=== PATIENT | male | born 1955 | race Caucasian/White ===

== ENCOUNTER → 2017-07-18 15:51 | Outpatient (CLI) | payer OTHER, SELFPAY | PROVIDERS: Visit Provider Otolaryngology Otolaryngology/Facial Plastic Surgery | DX: J32.9 Chronic sinusitis, unspecified (principal) | CPT/HCPCS: 87070; 87077; 87186; 87205 ==

== ENCOUNTER → 2017-08-25 10:26 | Outpatient (CLI) | payer OTHER, SELFPAY | PROVIDERS: Family Provider Family Medicine; PCP Family Medicine; Visit Provider Otolaryngology Otolaryngology/Facial Plastic Surgery | DX: J32.9 Chronic sinusitis, unspecified (principal) | CPT/HCPCS: 87070; 87077; 87186; 87205 ==

== ENCOUNTER → 2018-01-28 10:15 | Outpatient (CLI) | payer OTHER, SELFPAY | PROVIDERS: Family Provider Family Medicine; PCP Family Medicine; Referring Provider Otolaryngology Otolaryngology/Facial Plastic Surgery; Visit Provider Otolaryngology Otolaryngology/Facial Plastic Surgery | DX: J32.9 Chronic sinusitis, unspecified (principal) | CPT/HCPCS: 87070; 87077; 87186; 87205 ==

== ENCOUNTER → 2018-02-19 15:58 | Outpatient (CLI) | payer OTHER, SELFPAY | PROVIDERS: Family Provider Family Medicine; PCP Family Medicine; Referring Provider Otolaryngology Otolaryngology/Facial Plastic Surgery; Visit Provider Otolaryngology Otolaryngology/Facial Plastic Surgery | DX: J32.9 Chronic sinusitis, unspecified (principal) | CPT/HCPCS: 87070; 87077; 87186; 87205 ==

== ENCOUNTER 2018-05-13 17:36 | Emergency (ER) | payer OTHER, SELFPAY ==
[2018-05-13 17:38] VITALS: BP 140/89; PULSE 105; RESP 17; TEMP 37.1; O2SAT 95; BMI 28.4
--- NOTE | 2018-05-13 18:31 | CT_ITS ---
STUDY: CT FACIAL BONES WITHOUT CONTRAST REASON FOR EXAM: Male, 62 years old. Hit in the face with a large piece of wire at work. No loss of consciousness. RADIATION DOSAGE (If Supplied By Facility): CTDIvol = ( 29.38 ) mGy, DLP = ( 584.19 ) mGycm TECHNIQUE: The patient was scanned in a multi detector CT scanner. Sagittal and coronal images were reconstructed. Individualized dose optimization techniques were used for this CT. COMPARISON: CT of the head, May 13, 2018. FINDINGS: Normal soft tissue structures. Normal orbital jason and orbital contents. Normal nasal bones and anterior nasal spine. Normal facial bones. There is no demonstrated fracture. Large amount of mucoperiosteal reaction with near complete occlusion of the left frontal sinus. There is marked ethmoid sinusitis with minimal visualized aeration. There is near complete occlusion of both maxillary sinuses. There is erosion of the medial jason of both maxillary sinuses with soft tissue density extending outward into the anterior nasal cavities. This may be secondary to prior surgery in light of the absence of the right middle turbinate. Mucoperiosteal reaction extends into the sphenoid sinus. CT/Sinus/Facial Bone IMPRESSION: 1. Normal unenhanced CT of the facial bones. 2. No evidence of soft tissue injury. 3. Marked chronic sinusitis with question of prior sinus surgery. Electronically Signed: Jarred Kent DO at 19:14 EST Tel [phone], Service support ,
--- NOTE | 2018-05-13 18:31 | CT_ITS ---
STUDY: CT BRAIN WITHOUT CONTRAST REASON FOR EXAM: Male, 62 years old. Trauma RADIATION DOSAGE (If Supplied By Facility): CTDIvol = ( 44.99 ) mGy, DLP = ( 846.73 ) mGycm TECHNIQUE: Transaxial CT imaging of the brain was performed without administration of intravenous contrast material. Individualized dose optimization techniques were used for this CT. COMPARISON: None. FINDINGS: There is no acute bleed or infarct. There are normal white matter tracts. The ventricles are normal in configuration. There is no hydrocephalus. The mastoid air cells are well aerated. There is no skull fracture. CT/Brain/Head without Contrast IMPRESSION: No acute intracranial abnormality. Electronically Signed: Lyle Reyes, at 19:11 EST Tel , Service support ,
--- NOTE | 2018-05-13 18:32 | ED.VISSUMM ---
- ER Visit Summary Date of Service: 05/13/18 Chief Complaint: Head injury History of Present Illness: The patient is a 62 M presenting after head injury. This occurred at work. He states that he was hit in the head by a metal wire. He had no loss of consciousness or vomiting. He states he felt dizzy with headache afterwards. No vision changes. He also has pain in his right small finger. Denies other injury. Physical Examination: Vitals are stable. Patient is afebrile. Alert no acute distress. HEENT exam hematoma right temporal scalp, mild tenderness along the right orbit. No pain with extraocular movements. Pupils equal round reactive to light. Neck is nontender Lungs are clear and equal bilaterally. Heart is regular rate and rhythm. Abdomen is soft nontender nondistended. Extremities distal right small finger mild tenderness Skin is warm and dry. No focal neurologic deficit. Remainder of exam is unremarkable. Emergency Department Course and Treatment: Right hand x-ray shows no acute process. CT head and facial bones show no acute process. Patient has no pain of his eye but complains of watering in his eye. Visual acuity 20/25 OD, 20/20 OS. No fluoroscein available. Discussed with Dr. Umaña and he can see him in the office tomorrow if he has continued symptoms. On reevaluation, patient is feeling improved. He is advised to follow-up with corporate care. Advised return to ED if worsening complaints. Disposition: Discharge home Impression: Closed head injury This note was generated with [employer] dictation software. It may contain incorrect words, spelling, and punctuation that were not noted in review of the chart prior to signing ED Disposition - Plan for ED Patient: Chief Complaint: Head Injury Referrals: Kash Barreto MD [Primary Care Provider] -
--- NOTE | 2018-05-13 18:45 | RAD_ITS ---
STUDY: X-RAY - RIGHT HAND REASON FOR EXAM: Male, 62 years old. Injured fifth digit at work. TECHNIQUE: 3 view(s) of the hand. COMPARISON: None. FINDINGS: Normal radiocarpal articulation. Normal distal radioulnar joint. Normal visualized carpal bones. Normal carpal articulations There is degenerative arthrosis of the carpometacarpal (CMC) articulation of the thumb. Normal second through fifth carpometacarpal joints. Normal metacarpi. There is degenerative arthrosis of the first metacarpophalangeal (MCP) joint. There is degenerative arthrosis of the interphalangeal joint of the thumb with articular joint space narrowing. Normal proximal and distal phalanges of the thumb. There is narrowing of the metacarpophalangeal joints of the second and third fifth fingers. The fourth and fifth metacarpophalangeal joints appear normal. There is minimal arthrosis involving the first and second proximal interphalangeal joints. Normal phalanges of the second through fifth fingers. There is mild soft tissue prominence over the medial hand. RAD/Hand Min 3 Views IMPRESSION: 1. No acute abnormality of the fifth digit. There is medial soft tissue swelling. 2. Arthritic changes of the right hand. Electronically Signed: Jarred Kent DO at 19:08 EST Tel [phone], Service support ,
[2018-05-13 20:07] VITALS: BP 140/80; PULSE 105; RESP 17; O2SAT 95
--- NOTE | 2018-05-13 20:13 | ED.DEP ---
ED Disposition - Plan for ED Patient: Chief Complaint: Head Injury Instructions: ED Head Injury Closed Referrals: Kash Barreto MD [Primary Care Provider[facility] - Praveen Umaña MD [STAFF PHYSICIAN] -
== END 2018-05-13 20:26 | disposition home or self-care (01) ==
LOC: ED 19:05
PROVIDERS: Emergency Provider Emergency Medicine; Family Provider Family Medicine; PCP Family Medicine
DX: S09.90XA Unspecified injury of head, initial encounter (principal); W22.8XXA Striking against or struck by other objects, initial encounter; Y93.9 Activity, unspecified; Y92.89 Other specified places as the place of occurrence of the external cause; Y99.0 Civilian activity done for income or pay; J45.909 Unspecified asthma, uncomplicated
CPT/HCPCS: 70450; 70486; 73130; 99283

== ENCOUNTER → 2019-03-21 15:53 | Outpatient (CLI) | payer MEDICARE, OTHER, SELFPAY | PROVIDERS: Family Provider Family Medicine; PCP Family Medicine; Referring Provider Otolaryngology Otolaryngology/Facial Plastic Surgery; Visit Provider Otolaryngology Otolaryngology/Facial Plastic Surgery | DX: J32.9 Chronic sinusitis, unspecified (principal) | CPT/HCPCS: 87070; 87186; 87205 ==

== ENCOUNTER → 2019-05-05 17:40 | Outpatient (CLI) | payer MEDICARE, OTHER, SELFPAY ==
--- NOTE | 2019-05-05 17:58 | CT_ITS ---
STUDY: CT MAXILLOFACIAL SINUSES REASON FOR EXAM: Male, 63 years old. Sinusitis, multiple sinus surgeries. Hx hypertension. Inform Direct navigation protocol. RADIATION DOSAGE (If Supplied By Facility): CTDIvol = ( 33.06 ) mGy, DLP = ( 866.91 ) mGycm TECHNIQUE: The patient was scanned in a multi detector CT scanner. High resolution axial imaging was performed without the administration of intravenous contrast material. Sagittal and coronal images were reconstructed. Individualized dose optimization techniques were used for this CT. COMPARISON: 13 May 2018 FINDINGS: There is extensive opacification of paranasal sinuses with polypoid-like heterogeneous mucosal appearance. Some of the contents are focally hyperdense. There is predominant opacification of the left frontal sinus. Midline septum the left and frontal sinuses is incomplete, possibly resected. There is partial opacification of the right frontal sinus. Bilateral nasal frontal recesses are fully occluded. There is extensive opacification of the ethmoid sinus which has been previously decompressed. There is partial right upper, complete left upper and bilateral complete middle turbinectomies. There are bilateral uncinectomies. Right maxillary antrostomies patent. Left maxillary antrostomy is occluded. There is multifocal dehiscence cribriform plate. There are dehiscences of the lamina papyracea. There is multifocal polypoid-like projections off the maxillary sinus with mild partial opacification. Right sphenoid sinus is predominantly opacified with occluded right sphenoethmoidal recess. Left sphenoethmoid recess is occluded. Left sphenoid sinus is dominant and mostly well aerated with a small amount of secretions. The sphenoid midline septum terminates along the right lateral wall of the sinus. Bilateral carotid canals have complete osseous coverings and are located along the superolateral lateral aspect of the sphenoid sinus. There is no extra sinus extension of disease. There are chronic paranasal sinus wall inflammatory changes. Orbits and contents are normal. Nasopharynx is clear. Nasal cavity is clear and nasal septum has minor rightward cartilaginous deviation. Mastoid air cells, middle ears and external auditory canals are well aerated. Base of skull is intact. TMJs are located. Oropharyngeal airway is patent. Compared to one year prior that extensive paranasal sinus mucosal disease is mildly/moderately less. CT/Sinus/Facial Bone IMPRESSION: 1. Moderately extensive polypoid paranasal sinus mucosal disease, possibly fungal. 2. Extensive prior paranasal sinus functional decompression. Electronically Signed: Trey Barrett, at 17:00 EST Tel , Service support ,
== END ==
PROVIDERS: Family Provider Family Medicine; PCP Family Medicine; Referring Provider Otolaryngology; Visit Provider Otolaryngology
DX: J32.9 Chronic sinusitis, unspecified (principal)
CPT/HCPCS: 70486

== ENCOUNTER 2019-06-10 07:27 | Day surgery (SDC) | payer MEDICARE, OTHER, SELFPAY ==
--- NOTE | 2019-05-16 16:37 | EKG12_ITS ---
Test Reason : PREOP Blood Pressure : / mmHG Vent. Rate : 060 BPM Atrial Rate : 060 BPM P-R Int : 160 ms QRS Dur : 094 ms QT Int : 432 ms P-R-T Axes : 031 016 043 degrees QTc Int : 432 ms Normal sinus rhythm Normal ECG Confirmed by CODY SHELTON, DAKOTAH ([id number]), editorial specialist FELI MCCOY ([id number]) on 05/20/2019 8:58:12 AM Referred By: Arslan Griggs Confirmed By:DAKOTAH ROSS MD
[2019-05-16 17:56] LABS: Anion Gap 4 (5-15); BUN 19 mg/dL (7-18); BUN/Creat Ratio 20.9 RATIO (10-20); Calcium,Total 9.7 mg/dL (8.5-10.1); Chloride 102 mmol/L (98-107); Creatinine, Serum 0.91 mg/dL (0.70-1.30); EST Glomerular Filtration Rate 89 mL/min (>60); Est Glom Filt Rate - Afr Amer 107 mL/min (>60); Glucose 211 mg/dL (74-106); Potassium 4.1 mmol/L (3.5-5.1); Sodium Level 136 mmol/L (136-145)
[2019-06-03 14:35] LABS: Hemoglobin A1c 7.3 % (4.2-6.3)
[2019-06-10 07:56] VITALS: BP 131/80; PULSE 65; RESP 16; TEMP 36.6; O2SAT 98; BMI 27.3
[2019-06-10 08:06] LABS: Bedside Glucose 147 mg/dL (70-110)
[2019-06-10] MEDS: Lactated Ringers 1,000 ML 100 ML IV (08:08)
[2019-06-10] MEDS: Oxymetazoline 0.05% 1 SPRAY SPRAY.BTL 15 SPRAY (08:20)
--- NOTE | 2019-06-10 09:05 | ETH_PTH ---
PATIENT: MAGNOLIA KAUR [place] [facility] [id number] AGE/SX: 63/M ROOM: RE06/10/[address]: Dr. Jluis Griggs MD : [id number] BED: DIS: 06/10/2019 SPEC #: [id number] RECD: 06/10/19 13:59 STATUS: GERRI RE #: [id number] DAVON: 06/10/19 09:[address]: Jluis Griggs DEPT: SURGICAL PATHOLOGY RECD BY: Clary Horner ENTERED: 06/10/19 14:33 SP TYPE: ETH TISS OTHR DR: MD Dr. Kash Hall MD Tissues: A - Ethmoid sinus, NOS B - Ethmoid sinus, NOS Procedures: Decalcification bone/plaque Surgery Specimen Level IV HEADER OPERATION: Functional endoscopic sinus surgery, navigation PRE-OP DIAGNOSIS: Acute sinusitis, nasal congestion TISSUE SUBMITTED: A. Right ethmoid and maxillary sinus contents, B. Left ethmoid and maxillary sinus contents MICROSCOPIC DIAGNOSIS A. Right ethmoid and maxillary sinus contents, biopsies: Consistent with chronic sinusitis. Benign epithelial inclusion cyst. B. Left ethmoid and maxillary sinus contents, biopsies: Consistent with chronic sinusitis. AM:ramy 06/13/19 MICROSCOPIC DESCRIPTION Slides are reviewed. GROSS DESCRIPTION A - Received in fixative is one container labeled with the patient's name and designated right ethmoid and maxillary sinus contents. The specimen consists of multiple fragments of hemorrhagic soft tissue mixed with possible fragments of bone that in aggregate measure 3 x 2.5 x 0.3 cm. The entire specimen is submitted in one cassette after decalcification. B - Received in fixative is one container labeled with the patient's name and designated left ethmoid and maxillary sinus contents. The specimen consists of multiple fragments of hemorrhagic soft tissue mixed with possible fragments of bone that in aggregate measure 7.5 x 3 x 0.3 cm. [employer] In[employer] tissue is submitted in two cassettes after decalcification. / SJ:ramy 06/10/19 TC:3 CPT: 46576 x2, 26549 x2
[2019-06-10 10:12] VITALS: BP 131/80; BP 153/89; PULSE 84; RESP 16; TEMP 36.1; O2SAT 97
[2019-06-10 10:15] VITALS: BP 131/80; BP 151/89; PULSE 85; RESP 16; O2SAT 96
[2019-06-10 10:30] VITALS: BP 131/80; BP 138/82; PULSE 76; RESP 16; O2SAT 93
--- NOTE | 2019-06-10 10:40 | PCM.DC ---
You will use the following diet at home:: No restrictions Your food should be the consistency of: Regular Discharge Activity: Return to Normal Activity Call your doctor if your incision/area has: Sudden Increased Bleeding Additional Dressing/Incision Instructions:: starting tomorrow: nasal saline 5-6 times daily. sleep with head of bed elevated. Allergies/Adverse Reactions: Allergies erythromycin base [From E-Mycin] Allergy (Verified 06/10/19 07:54) Upset Stomach Sulfa (Sulfonamide Antibiotics) Allergy (Verified 06/10/19 07:54) Itching meperidine HCl [From Demerol] Adverse Reaction (Verified 06/10/19 07:54) Nausea NAUSEA & SWEATS Medications to take at Discharge Azelastine HCl [Astepro] 2 sprays NASAL PRN PRN 09/09/15 metFORMIN (XR) [Glucophage Xr] 1,000 mg PO DAILY 09/09/15 Budesonide/Formoterol Fumarate [Symbicort 160-4.5 Mcg Inhaler] 2 puff IH DAILY 06/03/19 Famotidine [Pepcid AC] 20 mg PO PRN PRN 06/03/19 Naproxen Sodium [Aleve] 220 mg PO PRN PRN 06/03/19 Acetaminophen/Codeine #3 [Tylenol#3] 1 tab PO Q6H PRN PRN 3 Days #10 tab 06/10/19 Doxycycline 100 mg PO DAILY 7 Days #7 cap 06/10/19 MethylPREDNISolone DosePak [Medrol DosePak] 4 mg PO UD #1 box 06/10/19 The following prescriptions were given: Doxycycline 100 mg PO DAILY 7 Days #7 cap Prescription Printed MethylPREDNISolone DosePak [Medrol DosePak] 4 mg PO UD #1 box Prescription Printed Acetaminophen/Codeine #3 [Tylenol#3] 1 tab PO Q6H PRN PRN 3 Days #10 tab PRN Reason: Pain Score 1-10/10 Prescription Printed Orders to be completed after discharge: Hemoglobin A1c Time Frame: 06/03/19, Facility: [facility], Location: Laboratory Primary Care Physician: Kash Barreto MD [Primary Care Provider] - Test Results: Test results from this visit will be discussed in further detail at your follow-up appointment, if applicable. Please Follow Up With: Arslan Griggs MD When: 1 week
[2019-06-10 10:41] VITALS: BP 131/80; BP 136/81; PULSE 79; RESP 16; TEMP 36.3; O2SAT 93
--- NOTE | 2019-06-10 10:41 | OP.PCM_ITS ---
Problem List (1) Chronic pansinusitis Status: Chronic (2) Polyposis of sinonasal region Status: Chronic Report of Operation Date of Procedure: 06/10/19 Pre-Operative Diagnosis: 1. chronic pansinusitis. 2. sinonasal polyposis Post-Operative Diagnosis: 1. chronic pansinusitis. 2. sinonasal polyposis Surgery/Procedure Performed:: 1. endoscopic maxillary antrostomy with removal of contents, right and left. 2. endoscopic total ethmoidectomy, right and left. 3. frontal sinus exploration with removal of contents, right and left. 4. sphenoidotomy with removal of contents, right and left. 5. extensive removal nasal polyps, right and left. 6. CT image guided navigation Type of Anesthesia:: General Description of Procedure: on the day of the procedure, after appropriate informed consent was obtained, the patient was brought to the operating room and placed in supine position on the operating table. he was placed under general endotracheal anesthesia by the anesthesiologist. the endotracheal tube was secured, lacrilube was placed in the eyes. the CT guided image navigation was set up and accuracy confirmed. the bilateral nasal cavities were decongested with oxymetazoline soaked pledgets and the bilateral polyps were injected with lidocaine/epinephrine. the left nasal cavity was evaluated with the zero degree endoscope and an extensive amount of polyps were seen in every aspect of the sinonasal cavity. a large middle meatus polyp was debrided with the microdebrider. a revision maxillary antrostomy was performed with the microdebrider and contents were evacuated. polyps were further debrided in the ethmoid chamber and a revision total ethmoidectomy was performed with the microdebrider. this was taken superiorly to the skull base and laterally to the lamina. a stankewicz maneuver was performed and no laminar defect was noted. a revision sphenoidotomy was performed with the microdebrider and polyps were evacuated. the frontal sinus balloon system light seeker was advanced into the frontal sinus. the balloon was advanced and dilater to 12 lulú. purulent drainage was evacuated. hemo stasis was achieved with the suction cautery. dawna was applied. a propel stent was deployed in the ethmoid chamber. the right nasal cavity was evaluated with the zero degree endoscope and an exte nsive amount of polyps were seen in every aspect of the sinonasal cavity. a large middle meatus polyp was debrided with the microdebrider. a revision maxillary antrostomy was performed with the microdebrider and contents were evacuated. polyps were further debrided in the ethmoid chamber and a revision total ethmoidectomy was performed with the microdebrider. this was taken superiorly to the skull base and laterally to the lamina. a stankewicz maneuver was performed and no laminar defect was noted. a revision sphenoidotomy was performed with the microdebrider and polyps were evacuated. the frontal sinus balloon system light seeker was advanced into the frontal sinus. the balloon was advanced and dilater to 12 lulú. purulent drainage was evacuated. hemostasis was achieved with the suction cautery. dawna was applied. a propel stent was deployed in the ethmoid chamber. the patient was awoken from anesthesia and transferred to the pacu in stable condition.
[2019-06-10 10:55] LABS: Bedside Glucose 233 mg/dL (70-110)
[2019-06-10 11:57] VITALS: BP 120/74; BP 131/80; PULSE 77; RESP 16; TEMP 36.7; O2SAT 95
== END 2019-06-10 11:59 | disposition home or self-care (01) ==
LOC: SDC 07:28 → AC 07:28
PROVIDERS: PCP Family Medicine; Referring Provider Otolaryngology; Visit Provider Otolaryngology
PROC: (CPT 31259; principal; 2019-06-10 08:35)
DX: L72.0 Epidermal cyst (principal); J32.4 Chronic pansinusitis; J33.8 Other polyp of sinus; J45.909 Unspecified asthma, uncomplicated; Z79.899 Other long term (current) drug therapy
CPT/HCPCS: 00160; 31259; 31267; 36415; 80048; 82962; 83036; 88305; 88311; 93005; J7120; J2405

== ENCOUNTER → 2020-03-24 17:00 | Outpatient (CLI) | payer MEDICARE, OTHER, SELFPAY | PROVIDERS: Visit Provider Otolaryngology | DX: J32.9 Chronic sinusitis, unspecified (principal) | CPT/HCPCS: 87070; 87077; 87186; 87205 ==

== ENCOUNTER → 2020-04-22 12:01 | Outpatient (CLI) | payer MEDICARE, OTHER, SELFPAY | PROVIDERS: Referring Provider Otolaryngology; Visit Provider Otolaryngology | DX: J32.9 Chronic sinusitis, unspecified (principal) | CPT/HCPCS: 87070; 87077; 87186; 87205 ==

== ENCOUNTER → 2020-06-10 14:54 | Outpatient (CLI) | payer MEDICARE, OTHER, SELFPAY | PROVIDERS: Referring Provider Otolaryngology; Visit Provider Otolaryngology | DX: J32.9 Chronic sinusitis, unspecified (principal) | CPT/HCPCS: 87070; 87077; 87186; 87205 ==

== ENCOUNTER → 2020-11-03 16:45 | Outpatient (CLI) | payer MEDICARE, OTHER, SELFPAY | PROVIDERS: Visit Provider Otolaryngology | DX: J32.8 Other chronic sinusitis (principal) | CPT/HCPCS: 87070; 87077; 87186; 87205 ==

== ENCOUNTER → 2020-12-29 11:27 | Outpatient (CLI) | payer MEDICARE, OTHER, SELFPAY ==
[2020-12-29 15:33] LABS: AST(SGOT) 10 U/L (15-37); Alanine Aminotransfer ALT/SGPT 30 U/L (16-61); Alkaline Phosphatase 59 U/L (45-117); Bilirubin, Direct 0.14 mg/dL (0.00-0.30); Globulin 3.1 g/dL (2.2-4.2); Protein, Total 7.1 g/dL (6.4-8.2)
== END ==
PROVIDERS: PCP Family Medicine; Referring Provider Dermatology; Visit Provider Dermatology
DX: B35.3 Tinea pedis (principal); B35.2 Tinea manuum; B35.1 Tinea unguium
CPT/HCPCS: 36415; 80076

== ENCOUNTER 2021-05-13 15:21 | Outpatient (CLI) | payer MEDICARE, OTHER, SELFPAY | END 2021-05-13 23:59 | disposition short-term general hospital (02) | LOC: LABSPEC 15:22 | PROVIDERS: PCP Family Medicine; Visit Provider Otolaryngology | DX: J32.9 Chronic sinusitis, unspecified (principal) | CPT/HCPCS: 87070; 87077; 87205 ==

== ENCOUNTER → 2022-10-16 | Outpatient (CLI) | payer MEDICARE, OTHER, SELFPAY ==
[2022-10-16 18:23] LABS: Absolute Lymphocyte Count 2.03 X10^3/uL (0.83-4.51); Absolute Neutrophil Count 3.4 X10^3/uL (2.0-7.7); Basophil# 0.08 X10^3/uL; Basophil% 1.2 % (0-1); Eosinophil# 0.41 X10^3/uL; Eosinophils% 6.2 % (0-5); Hematocrit 48.6 % (40-54); Hemoglobin 16.4 g/dL (13.0-16.5); Lymphocyte # 2.03 X10^3/ul (0.83-4.51); Lymphocyte % 30.9 % (19-41); Mean Corp Hgb Conc 33.7 g/dL (32-36); Mean Corpuscular Hgb 31.1 pg (27.0-32.0); Mean Platelet Vol. 10.7 fl (6.2-12.0); Monocyte# 0.59 X10^3/uL; NRBC Flagged by Analyzer 0 % (0-5); Neutrophil # 3.44 X10^3/uL (2.7-7.7); Neutrophil % 52.4 % (47-70); Platelet Count 242 K/mm3 (150-450); RBC Distribution Width CV 13.7 % (11.6-14.6); RBC Distribution Width SD 46.5 fl (35.1-43.9); Red Blood Count 5.28 M/mm3 (4.6-6.2); White Blood Count 6.6 K/mm3 (4.4-11.0)
[2022-10-16 18:34] LABS: ALB/GLOB Ratio 1.2 RATIO (0.9-2.4); AST(SGOT) 19 U/L (15-37); Alanine Aminotransfer ALT/SGPT 36 U/L (16-61); Albumin, Serum 3.9 g/dL (3.2-5.0); Alkaline Phosphatase 69 U/L (45-117); Anion Gap 7 (5-15); BUN 22 mg/dL (7-18); BUN/Creat Ratio 28.5 RATIO (10-20); Calcium,Total 8.8 mg/dL (8.5-10.1); Chloride 110 mmol/L (98-107); Creatinine, Serum 0.77 mg/dL (0.70-1.30); EST Glomerular Filtration Rate 106 mL/min (>60); Est Glom Filt Rate - Afr Amer 129 mL/min (>60); Globulin 3.2 g/dL (2.2-4.2); Glucose 102 mg/dL (74-106); Potassium 4.2 mmol/L (3.5-5.1); Protein, Total 7.1 g/dL (6.4-8.2); Sodium Level 141 mmol/L (136-145)
[2022-10-16 18:53] LABS: Hepatitis B Surface Antibody Non-Reactive; Hepatitis B Surface Antigen Non-Reactive (Nonreactive)
[2022-10-18 05:07] LABS: Hepatitis B Core Ab Total Negative (Negative)
== END | disposition home or self-care (01) ==
LOC: MTLAB 15:23
PROVIDERS: PCP Nurse Practitioner Adult Health; Referring Provider Physician Assistant; Visit Provider Physician Assistant
DX: L43.8 Other lichen planus (principal); B35.1 Tinea unguium
CPT/HCPCS: 36415; 80053; 85025; 86704; 86706; 87340

== ENCOUNTER → 2022-11-09 | Outpatient (CLI) | payer MEDICARE, OTHER, SELFPAY ==
[2022-11-09 16:44] LABS: Hepatitis C Antibody Non-Reactive (Nonreactive)
== END | disposition home or self-care (01) ==
LOC: MTLAB 13:49
PROVIDERS: PCP Nurse Practitioner Adult Health; Visit Provider Physician Assistant
DX: L43.8 Other lichen planus (principal)
CPT/HCPCS: 36415; 86803

== ENCOUNTER → 2024-12-23 | Outpatient (CLI) | payer MEDICARE, OTHER, SELFPAY ==
--- NOTE | 2024-12-23 12:33 | CT_ITS ---
PROCEDURE: SINUS/FACIAL BONE 12/23/2024 REASON FOR EXAM: OTHER POLYP OF SINUS/NASAL CONGESTION TECHNIQUE: SINUS/FACIAL BONE Coronal and Sagittal reconstruction series were provided. One or more dose reduction techniques were used (e.g., Automated exposure control, adjustment of the mA and/or kV according to patient size, use of iterative reconstruction technique). RADIATION DOSE SUMMARY: CTDlvol: 33.06 mGy DLP: 866.91 mGycm COMPARISON: Prior study dated May 05, 2019. FINDINGS: Frontal: Opacification of the frontal sinuses Ethmoid: Opacification of the ethmoid sinuses. There is evidence of prior surgical resection. Thinning of the remaining bony septations. Sphenoid: Partial opacification of the sphenoid sinus. Maxillary: Opacification of the maxillary sinuses with evidence of prior resection of the superior medial jason of both maxillary sinuses. Prominent soft tissue is seen in the ostiomeatal complex bilaterally worse on the left side. Turbinates: Resection of the superior and middle turbinates. Nasal Septum: Is midline. Mastoids/Middle Ears: Clear. Small segmental lymph nodes. CT/Sinus/Facial Bone IMPRESSION: Pansinusitis. Prior resection of the medial wall of the maxillary sinus and ethmoid sinus. Reading Location: [facility]
== END | disposition home or self-care (01) ==
LOC: CT 12:26
PROVIDERS: PCP Nurse Practitioner Adult Health; Referring Provider Otolaryngology; Visit Provider Otolaryngology
DX: J33.8 Other polyp of sinus (principal); R09.81 Nasal congestion
CPT/HCPCS: 70486

== ENCOUNTER 2025-02-10 11:26 | Day surgery (SDC) | payer MEDICARE, OTHER, SELFPAY ==
[2025-02-05 12:41] LABS: Hematocrit 45.7 % (40-54); Hemoglobin 16.2 g/dL (13.0-16.5); Mean Corp Hgb Conc 35.4 g/dL (32-36); Mean Corpuscular Volume 89.8 fL (80-94); Mean Platelet Vol. 9.8 fl (6.2-12.0); Platelet Count 245 K/mm3 (150-450); RBC Distribution Width CV 13.2 % (11.6-14.6); RBC Distribution Width SD 43.2 fl (35.1-43.9); Red Blood Count 5.09 M/mm3 (4.6-6.2); White Blood Count 8.0 K/mm3 (4.4-11.0)
[2025-02-05 13:17] LABS: Anion Gap 9 (5-15); BUN 18 mg/dL (4-19); BUN/Creat Ratio 19.4 RATIO (10-20); Calcium,Total 9.2 mg/dL (7.6-11.0); Carbon Dioxide 28.0 mmol/L (21.0-32.0); Chloride 103 mmol/L (98-108); Glucose 190 mg/dL (70-99); Potassium 3.9 mmol/L (3.3-5.1)
[2025-02-10] VITALS (9 sets, daily range): BP systolic 118–143; BP diastolic 70–86; PULSE 70–86; RESP 16–20; TEMP 36.2–36.7; O2SAT 93–98; BMI 27.3
[2025-02-10] MEDS: Lactated Ringers 1,000 ML 15 ML IV (11:50)
[2025-02-10] MEDS: Midazolam 2 MG/2 ML Syringe IV (13:40)
[2025-02-10] MEDS: Lactated Ringers 1,000 ML 1000 ML IV (13:40)
[2025-02-10] MEDS: fentaNYL 100 MCG/2 ML Ampul IV (13:50)
[2025-02-10] MEDS: Lidocaine 1% (5 ml sdv) 5 ML Vial 4 ML IV (13:50)
[2025-02-10] MEDS: Oxymetazoline 0.05% 1 SPRAY SPRAY.BTL 15 SPRAY (14:01)
== END 2025-02-10 15:27 | disposition home or self-care (01) ==
LOC: SDC 11:28 → AC 11:29
PROVIDERS: PCP Nurse Practitioner Adult Health; Referring Provider Otolaryngology; Visit Provider Otolaryngology
PROC: (CPT 31259; principal; 2025-02-10 12:30)
DX: J33.8 Other polyp of sinus (principal); J32.4 Chronic pansinusitis; E78.00 Pure hypercholesterolemia, unspecified; I10 Essential (primary) hypertension; J45.909 Unspecified asthma, uncomplicated; F17.200 Nicotine dependence, unspecified, uncomplicated
CPT/HCPCS: 31259; 31267; 31276; 61782; 00160; 36415; 80048; 85027; 93005; J2405